=== PATIENT | male | born 2000 | race African-American/Black ===

== ENCOUNTER 2025-04-10 19:29 | Emergency (ER) | payer MEDICAID ==
[~2025-04-10] VITALS: Ht 182.9 cm; Wt 77.1 kg
[2025-04-10] MEDS ORDERED: LIDOCAINE HCL/PF 1% 30 ML VIAL TP ONE (20:30)
[2025-04-10] MEDS: KETOROLAC TROMETHAMINE INJ 30 MG/ML VIAL IM ONE (20:41)
[2025-04-10] MEDS: HYDROCODONE/APAP 10/325MG TABLET PO ONE (20:42)
[2025-04-10] MEDS ORDERED: LIDOCAINE 1% INJ 50 ML MDV IJ ONE (20:45)
[2025-04-10] MEDS: TDAP [DIPH/PERTUSSIS/TET] 0.5 ML VIAL IM ONE (21:03)
[2025-04-10] MEDS ORDERED: FENTANYL PF 100MCG/2ML AMPUL ONE (22:42)
[2025-04-10] MEDS: FENTANYL PF 100MCG/2ML AMPUL IV ONE (23:11)
[2025-04-11] MEDS ORDERED: SULF1TAB48 PO (01:00)
[2025-04-11] MEDS ORDERED: CEPH-570 PO (01:00)
[2025-04-11] MEDS ORDERED: HYDR-4275 PO (01:06)
[2025-04-11 01:23] VITALS: BP 110/62; TEMP 98.2; O2SAT 100
== END 2025-04-11 01:23 | disposition home or self-care (01) ==
LOC: ER 19:33
DX: S81.812A Laceration without foreign body, left lower leg, initial encounter (principal); Z60.2 Problems related to living alone; W18.39XA Other fall on same level, initial encounter; Y93.89 Activity, other specified; Y92.89 Other specified places as the place of occurrence of the external cause; Y99.8 Other external cause status
CPT/HCPCS: 12005; 73590; 90471; 90715; 96372; 96374; 99284; J1885; J3010; J3490

== ENCOUNTER 2025-04-20 14:13 | Emergency (ER) | payer MEDICAID ==
[~2025-04-20] VITALS: Ht 182.9 cm; Wt 79.4 kg
[~2025-04-20 14:13] MED LIST: CEPH-570 PO; HYDR-4275 PO; SULF1TAB48 PO
[2025-04-20 14:27] VITALS: TEMP 97.9
[2025-04-20] MEDS ORDERED: oxyCODONE/APAP (5/325 MG) 1 UDTAB TABLET ONE (14:55)
[2025-04-20] MEDS ORDERED: DOXYCYCLINE HYCLATE (100 MG) 100 MG TABLET ONE (14:56)
[2025-04-20] MEDS: oxyCODONE/APAP (5/325 MG) 1 UDTAB TABLET PO ONE (15:00)
[2025-04-20] MEDS: DOXYCYCLINE HYCLATE (100 MG) 100 MG TABLET PO ONE (15:00)
[2025-04-20] MEDS ORDERED: LET SOLN TOPICAL 8 ML UDC TP ONE (15:10)
[2025-04-20] MEDS: LET SOLN TOPICAL 8 ML UDC TP ONE (15:13)
[2025-04-20] MEDS ORDERED: OXYC10TA49 PO (16:29)
[2025-04-20] MEDS ORDERED: DOXY100T2 PO (16:29)
[2025-04-20] MEDS ORDERED: MUPI15CR TP (16:29)
[2025-04-20 17:01] VITALS: BP 122/80; O2SAT 99
== END 2025-04-20 17:02 | disposition home or self-care (01) ==
LOC: ER 14:22
DX: S81.811D Laceration without foreign body, right lower leg, subsequent encounter (principal); Z48.02 Encounter for removal of sutures; Z60.2 Problems related to living alone; X58.XXXD Exposure to other specified factors, subsequent encounter
CPT/HCPCS: 99284; A6403

== ENCOUNTER 2025-04-22 19:43 | Emergency (ER) | payer MEDICAID ==
[~2025-04-22] VITALS: Ht 182.9 cm; Wt 77.1 kg
[~2025-04-22 19:43] MED LIST changes: +DOXY100T2 PO; +MUPI15CR TP; +OXYC10TA49 PO
[2025-04-22 20:37] VITALS: BP 112/47; TEMP 98.5; O2SAT 98
[2025-04-22] MEDS ORDERED: KETOROLAC TROMETHAMINE 15 MG/ML VIAL ONE (21:30)
[2025-04-22] MEDS: KETOROLAC TROMETHAMINE 15 MG/ML VIAL IM ONE (21:35)
[2025-04-22] MEDS: BACI/NEOM/POLY B OINT PKT 1 UDPKT PACKET TP ONE (22:00)
[2025-04-22] MEDS: CEFAZOLIN 1 GM VIAL IM ONE (22:17)
[2025-04-22] MEDS ORDERED: DOXY100C2 PO (22:22)
[2025-04-22] MEDS ORDERED: MUPI15CR TP (22:22)
[2025-04-22] MEDS ORDERED: HYDR-4275 PO (22:22)
[2025-04-22] MEDS ORDERED: OXYC5TAB3 PO (22:38)
== END 2025-04-22 22:45 | disposition home or self-care (01) ==
LOC: ER 19:44
DX: T81.31XA Disruption of external operation (surgical) wound, not elsewhere classified, initial encounter (principal); Z60.2 Problems related to living alone; Y84.8 Other medical procedures as the cause of abnormal reaction of the patient, or of later complication, without mention of misadventure at the time of the procedure; Y92.89 Other specified places as the place of occurrence of the external cause
CPT/HCPCS: 12020; 96372; 99284; J0690; J1885

== ENCOUNTER 2025-04-26 12:44 | Emergency (ER) | payer MEDICAID ==
[~2025-04-26] VITALS: Ht 182.9 cm; Wt 79.4 kg
[~2025-04-26 12:44] MED LIST changes: +DOXY100C2 PO; +OXYC5TAB3 PO
[2025-04-26 12:54] VITALS: BP 119/62; TEMP 97.9
[2025-04-26] MEDS ORDERED: AMOX-430 PO (13:27)
[2025-04-26] MEDS ORDERED: HYDROCODONE/APAP 5/325MG TABLET ONE (14:19)
[2025-04-26] MEDS ORDERED: HYDROCODONE/APAP 5/325MG TABLET PO ONE (14:30)
[2025-04-26] MEDS ORDERED: oxyCODONE/APAP (5/325 MG) 1 UDTAB TABLET ONE (14:34)
[2025-04-26] MEDS ORDERED: OXYC-128 PO ×2 (14:47→14:52)
[2025-04-26] MEDS: oxyCODONE/APAP (5/325 MG) 1 UDTAB TABLET PO ONE (14:55)
[2025-04-26 15:05] VITALS: O2SAT 100
== END 2025-04-26 15:06 | disposition home or self-care (01) ==
LOC: ER 12:47
DX: L03.818 Cellulitis of other sites (principal); T81.30XA Disruption of wound, unspecified, initial encounter; Z60.2 Problems related to living alone; Z79.899 Other long term (current) drug therapy; Y83.8 Other surgical procedures as the cause of abnormal reaction of the patient, or of later complication, without mention of misadventure at the time of the procedure; Y92.89 Other specified places as the place of occurrence of the external cause
CPT/HCPCS: 99283; A6403 ×2

== ENCOUNTER 2025-05-07 11:19 | Emergency (ER) | payer MEDICAID ==
[~2025-05-07] VITALS: Ht 182.9 cm; Wt 77.1 kg
[~2025-05-07 11:19] MED LIST changes: +AMOX-430 PO; +OXYC-128 PO
[2025-05-07 11:25] VITALS: BP 123/89; TEMP 99.1
[2025-05-07] MEDS ORDERED: oxyCODONE/APAP (5/325 MG) 1 UDTAB TABLET ONE (12:14)
[2025-05-07] MEDS ORDERED: CLINDAMYCIN HCL 150 MG CAPSULE ONE (12:14)
[2025-05-07] MEDS: CLINDAMYCIN HCL 150 MG CAPSULE PO ONE (12:16)
[2025-05-07] MEDS: oxyCODONE/APAP (5/325 MG) 1 UDTAB TABLET PO ONE (12:17)
[2025-05-07] MEDS ORDERED: CLIN300C12 PO (12:19)
[2025-05-07] MEDS ORDERED: KETO10TA2 PO (12:19)
[2025-05-07 12:31] VITALS: O2SAT 100
== END 2025-05-07 12:32 | disposition home or self-care (01) ==
LOC: ER 11:25
DX: T81.33XD Disruption of traumatic injury wound repair, subsequent encounter (principal); Z48.00 Encounter for change or removal of nonsurgical wound dressing; Z60.2 Problems related to living alone; Y84.8 Other medical procedures as the cause of abnormal reaction of the patient, or of later complication, without mention of misadventure at the time of the procedure

== ENCOUNTER 2025-05-29 14:05 | Emergency (ER) | payer MEDICAID ==
[~2025-05-29] VITALS: Ht 182.9 cm; Wt 77.1 kg
[~2025-05-29 14:05] MED LIST changes: +CLIN300C12 PO; +KETO10TA2 PO
[2025-05-29 14:15] VITALS: BP 122/71; TEMP 98.1; O2SAT 99
[2025-05-29] MEDS ORDERED: MUPI22OI2 TP (14:56)
[2025-05-29] MEDS ORDERED: SULF1TAB48 PO (14:56)
== END 2025-05-29 15:10 | disposition home or self-care (01) ==
LOC: ER 14:08
DX: S81.812D Laceration without foreign body, left lower leg, subsequent encounter (principal); T81.30XD Disruption of wound, unspecified, subsequent encounter; Z60.2 Problems related to living alone; Z79.899 Other long term (current) drug therapy; X58.XXXD Exposure to other specified factors, subsequent encounter
CPT/HCPCS: 99283; A6403